=== PATIENT | female | born 1930 | race Caucasian/White ===

== ENCOUNTER 2018-07-12 21:40 | Inpatient (IN) | payer MEDICARE ==
[~2018-07-12] VITALS: Ht 152.4 cm; Wt 66.7 kg
[~2018-07-12 21:40] MED LIST: ASPIR 8181 MG PO; ATENOLOL 100MG100 MG PO; CALCIUM 600 +1 EAC1 PO; CENTRUM GARLIC300 MG PO; COLACE100 MG PO; FISH OIL 1,001000 M2 PO; HYDROCODONE-AP1 EAC6 PO; LEXAPRO 10 MG T10 M1 PO; LISINOPRIL20 MG PO; LUMIGAN2.5 M1 OP; MILK OF MA2400 MG/10 PO; NITROGLYCERIN0.4 MG SUBLING; NORVASC2.5 MG PO; ONDANSETRON HCL4 M2 PO; OXYCODONE HCL 55 MG PO; PAIN RELIEF650 MG PO; PREDNISONE 5 MG5 M1 PO; VITAMIN D3400 UNIT PO; VITAMIN E400 UNIT PO; VITAMINC500 PO; XALATAN2.5 ML OPHTHALMIC; XARELTO10 MG PO
[2018-07-12 21:41] VITALS: BP 182/69
[2018-07-12] MEDS ORDERED: KAPSPARGO SPRIN50 MG PO (22:10)
[2018-07-12 22:19] LABS: URINE BILIRUBIN NEGATIVE (Negative); URINE BLOOD NEGATIVE (Negative); URINE CLARITY CLEAR; URINE COLOR YELLOW; URINE GLUCOSE-RANDOM NEGATIVE (Negative); URINE KETONES NEGATIVE (Negative); URINE PROTEIN NEGATIVE (Negative); URINE SPECIFIC GRAVITY 1.015 (1.005-1.030); URINE UROBILINOGEN 0.2 E.U./dl (0.2-1.0)
[2018-07-12 22:21] LABS: URINE LEUKOCYTES-REFLEX 2+ (Negative); URINE NITRITE-REFLEX POSITIVE (Negative)
[2018-07-12 22:23] LABS: ABSOLUTE BASOPHILS 0.1 thou/uL (0.0-0.2); ABSOLUTE EOSINOPHILS 0.3 thou/uL (0.0-0.7); ABSOLUTE MONOCYTES 0.9 thou/uL (0.0-1.2); ABSOLUTE NEUTROPHILS 5.2 thou/uL (1.6-8.1); BASOPHILS 1.1 %; EOSINOPHILS 3.3 %; HEMATOCRIT 45.5 % (37.0-47.0); LYMPHOCYTES 23.9 %; MCH 29.6 pg (26.0-34.0); MCHC 32.9 g/dL (28.0-37.0); MONOCYTES 10.6 %; MPV 7.6 fl. (7.2-11.1); NUCLEATED RBCS 0 /100WBC; PLATELET COUNT* 401 thou/uL (150-400); POLYS 61.1 %; RBC 5.06 mil/uL (4.20-5.00); WBC 8.5 thou/uL (4.0-11.0)
[2018-07-12 22:28] LABS: ANION GAP 8 mmol/L (7-16); BUN 21 mg/dL (7-18); CALCIUM 9.2 mg/dL (8.5-10.1); CHLORIDE 100 mmol/L (98-107); CO2 30 mmol/L (21-32); CREATININE 0.8 mg/dL (0.6-1.3); GLUCOSE 112 mg/dL (70-99); POTASSIUM 3.8 mmol/L (3.5-5.1); SODIUM 138 mmol/L (136-145)
[2018-07-12 22:32] LABS: INR 0.9; PROTIME 9.6 Seconds (9.20-11.50)
[2018-07-12 22:38] LABS: ALBUMIN 4.2 g/dL (3.4-5.0); ALKALINE PHOSPHATASE 87 U/L (46-116); LIPASE 459 U/L (73-393); NT-PRO BRAIN NAT PEPTIDE 147 pg/mL (<300); SGOT 27 U/L (15-37); SGPT 25 U/L (30-65); TOTAL BILIRUBIN 0.2 mg/dL (<0.1-1.0); TOTAL PROTEIN 7.9 g/dL (6.4-8.2); TROPONIN-I LEVEL <0.06 ng/mL (<0.06)
[2018-07-12 22:43] LABS: CASTS None Seen /LPF (None Seen); SQUAMOUS 0-3 Few /LPF (0-3)
[2018-07-12 22:44] LABS: BACTERIA-REFLEX >30 Many /HPF (None Seen); CRYSTALS None Seen /LPF (None Seen); URINE RBC None Seen /HPF (0-2); URINE WBC-REFLEX 6-15 Few /HPF (0-5)
[2018-07-13 01:06] VITALS: BP 148/61
[2018-07-13 02:24] VITALS: BP 151/67
--- NOTE | 2018-07-13 03:45 | NUR ---
PT ARRIVED ON UNIT AROUND 0100. A&Ox4. VITALS STABLE. O2 93% ON RA. UP WITH ASSIST. ADMIT CHECKLIST COMPLETE. PERSONAL ITEMS WITH PT. SCDs ON. IV IN LEFT AC PATENT, INFUSING.
--- NOTE | 2018-07-13 04:56 | NUR ---
PT A&Ox4. VITALS STABLE. STAND BY ASSIST TO CAMMODE. IV IN L AC PATENT, INFUSING. DENIES PAIN. SCDs IN PLACE. FALL PRECAUTIONS IN PLACE. CALL LIGHT WITHIN REACH. HOURLY ROUNDING COMPLETE. WILL CONTINUE TO MONITOR.
[2018-07-13 07:50] VITALS: BP 106/85
--- NOTE | 2018-07-13 13:21 | EKG ---
[place] [address] ELECTROCARDIOGRAM REPORT Name: MOLLY HOBBS Room: [address] ADM IN [facility]#: [id number] Admission: 07/13/18 Attend Phys: Sugey Yost MD Discharge: Date of : [birth year] Report #: [id number] THIS REPORT FOR: //name// [facility] ED Test Date: 2018-07-12 Test Time: 22:34:39 Pat Name: MOLLY HOBBS Department: Room: [facility] Gender: F Supervisor Park Workers: RUBEN : 1930 Requested By: Gela De La Fuente Order Number: [id number] MD: Giacomo Phelps Measurements Intervals [place] Rate: 67 P: 19 CA: 218 QRS: -74 QRSD: 156 T: 88 QT: 482 QTc: 509 Interpretive Statements Atrial-sensed ventricular-paced complexes No further analysis attempted due to paced rhythm Compared to ECG 02/02/2017 03:35:59 No significant changes Electronically Signed On 07-13-2018 13:21:47 EMPLOYEE COUNSELOR by Giacomo Phelps [email or web address] <ELECTRONICALLY SIGNED> By: Giacomo Phelps MD, FAC 07/13/18 1321 [id number] Giacomo Phelps MD, [facility] /EPI
--- NOTE | 2018-07-13 16:05 | NUR ---
SW met with pt to complete initial assessment, introduce self, and SW role. Pt alert, oriented, pleasant. Pt lives at home alone in mobile home. Pt has a supportive sister. Pt has gunner PALENCIA. Pt has hx of HH after hip surgeries but does not recall name of agency. Pt said she used to go to [facility] for exercise classes. Pt has hx of SNF at [facility] and [facility]. SW to continue to follow to assist with safe dc planning.
[2018-07-13 16:27] VITALS: BP 172/72
--- NOTE | 2018-07-13 18:08 | NUR ---
ASSESSMENT COMPLETE. PT ALERT AND ORIENTED. DENIES PAIN AND N/V. IV FLUIDS INFUSING. PT IS FALL RISK, CHAIR ALARM ON. PT SAT IN CHAIR MOST OF THE DAY. TOLERATING DIET. DENIES N/V. PT IS ON ROOM AIR WITH [place] SATS, VITALS STABLE. SKIN INTACT. PT IS UP ONE ASSIST. PT TAKES MEDICATIONS WITHOUT DIFFICULTY. SEE ASSESSMENT AND VITALS FOR OTHER DETAILS. CALL LIGHT WITHIN REACH, WILL CONTINUE PLAN OF CARE
--- NOTE | 2018-07-14 05:29 | NUR ---
PATIENT HAD MINOR EPISODE THIS A.M WHEN GETTING TO BEDSIDE COMMODE. SHE STATED "I SUDDENTLY FEEL WEAK ALL OVER I DONT KNOW HOW TO EXPLAIN WHAT I AM FEELING, I HAVE DISCOMFORT IN MY UPPER STOMACH IT'S NOT PAIN". PT DENIED NAUSEA. BP WAS TAKEN IT WAS 196/93. GIVEN NITRO X3. SEEMED TO SUBSIDE DISCOMFORT. BP CAME DOWN TO NORMAL LIMITS. PT WAS ABLE TO HAVE BM. SHE STATED SHE FELT BETTER. WAS CALLED AND AWARE OF SITUATION ORDERS TO MONITOR PT. PT HAS NO VOICED CONCERNS AT THIS TIME. BED TO LOWEST POSITION. CALL LIGHT WITHIN REACH. WILL CONTINUE TO MONITOR.
[2018-07-14 07:50] VITALS: BP 188/95
--- NOTE | 2018-07-14 18:13 | NUR ---
PATIENT HAS BEEN A/O X 4 THIS SHIFT. HAS DENIED PAIN. PATIENT'S IV SALINE LOCKED. ANTIBIOTICS INFUSED ORDERED. PATIENT UP IN CHAIR FOR ALL OF SHIFT. PATIENT AMBULATING IN ROOM TO BATHROOM WITH SBA. PATIENT TOLERATING DIET. PATIENT SHOWERED THIS SHIFT. PATIENT NOTED TO HAVE SMALL SKIN TEAR TO RIGHT LOWER EXTREMITY AFTER SHOWER, STATES BUMPED LEG INTO SHOWER CHAIR, PICTURE OBTAINED. MEPILEX APPLIED TO RIGHT LOWER LEG. PATIENT HOPEFUL TO BE DISCHARGED IN THE NEXT COUPLE OF DAYS. HOURLY ROUNDING COMPLETED. CALL LIGHT WITHIN REACH. WILL CONTINUE WITH PLAN OF CARE.
[2018-07-14 20:03] VITALS: BP 142/79
--- NOTE | 2018-07-15 05:18 | NUR ---
PATIENT SLEPT WELL DURING THIS SHIFT. PT USES CALL LIGHT APPROPRIATELY FOR ASSISTANCE TO BATHROOM. PT UP WITH USE OF WALKER AND ASSIST. PT IS ON ROOM AIR. PT TAKES PO MEDICATION WITH NO PROBLEM. PT DENIES PAIN/NAUSEA ON THIS SHIFT. PT VERY HEARD OF HEARING. PT WITH SALINE LOCK, PATENT, IN THE RT AC. FREQUENTLY USED ITEMS AND CALL LIGHT WITHIN REACH. SIDERAILS UPX2. WILL CONTINUE TO MONITOR.
[2018-07-15 07:55] VITALS: BP 155/83
[2018-07-15] MEDS ORDERED: AZITHROMYCIN 2250 MG PO (15:21)
[2018-07-15] MEDS ORDERED: CEFDINIR300 MG PO (15:21)
[2018-07-15 15:39] VITALS: BP 155/83
[2018-07-15 15:45] VITALS: BP 155/83
[2018-07-15 16:00] VITALS: BP 132/82
--- NOTE | 2018-07-15 16:01 | NUR ---
SAND BOBBER SPOKE TO THE PATIENT TO DISCUSS DISCHARGE PLANNING NEEDS AND HH AT D/C. PATIENT REQUEST HH WITH [facility]. D/C SEARCH ENGINE OPTIMIZATION STRATEGIST SPOKE TO MENDY WITH [facility] TO INFORM OF THE REFERRAL AND FAXED PATIENT'S FACESHEET, H&P, AND D/C ORDERS. [facility] TO CONTACT THE PATIENT TO ARRANGE A TIME TO VISIT. CM WILL REMAIN AVAILABLE TO ASSIST AND FOLLOW NEEDED.
--- NOTE | 2018-07-15 16:39 | NUR ---
PATIENT GIVEN DISCHARGE INSTRUCTIONS AND PRESCRIPTIONS CALLED INTO PATIENT'S PHARMACY PER REQUEST. PATIENT'S IV REMOVED. PATIENT VERBALIZED UNDERSTANDING IN REGARDS TO FOLLOW UP APPOINTMENTS AND NEW MEDICATIONS. PATIENT DISCHARGED TO HOME WITH ALL BELONGINGS. ESCORTED OFF NURSING UNIT WITH NURSING STAFF TO FRONT EXIT.
== END 2018-07-15 16:41 | disposition home health service (06) | DRG 178 ==
LOC: M.ERS 21:40 → M.3W 07-13 00:17 → M.TBA-ER 07-13 00:17 → M.3W 07-13 00:17
PROVIDERS: Emergency Medicine; ADMIT Internal Medicine
DX: J69.0 Pneumonitis due to inhalation of food and vomit (principal); N39.0 Urinary tract infection, site not specified; J15.6 Pneumonia due to other Gram-negative bacteria; Z96.641 Presence of right artificial hip joint; H40.9 Unspecified glaucoma; I10 Essential (primary) hypertension; F32.9 Major depressive disorder, single episode, unspecified; Z95.0 Presence of cardiac pacemaker; Z87.891 Personal history of nicotine dependence; Z98.42 Cataract extraction status, left eye; Z79.82 Long term (current) use of aspirin; Z79.899 Other long term (current) drug therapy

== ENCOUNTER 2018-07-23 12:47 | Inpatient (IN) | payer MEDICARE ==
[~2018-07-23] VITALS: Ht 152.4 cm; Wt 66.2 kg
[~2018-07-23 12:47] MED LIST changes: +AZITHROMYCIN 2250 MG PO; +CEFDINIR300 MG PO; +KAPSPARGO SPRIN50 MG PO
[2018-07-23 12:49] VITALS: BP 192/92
[2018-07-23 13:49] LABS: ABSOLUTE BASOPHILS 0.1 thou/uL (0.0-0.2); ABSOLUTE EOSINOPHILS 0.1 thou/uL (0.0-0.7); ABSOLUTE LYMPHOCYTES 1.1 thou/uL (0.8-5.3); ABSOLUTE MONOCYTES 0.5 thou/uL (0.0-1.2); ABSOLUTE NEUTROPHILS 5.3 thou/uL (1.6-8.1); BASOPHILS 1.2 %; EOSINOPHILS 1.4 %; HEMATOCRIT 42.7 % (37.0-47.0); HEMOGLOBIN 14.1 gm/dL (12.0-15.0); LYMPHOCYTES 15.5 %; MCH 29.5 pg (26.0-34.0); MCV 89.6 fL (80.0-100.0); MONOCYTES 6.5 %; MPV 6.9 fl. (7.2-11.1); NUCLEATED RBCS 0 /100WBC; PLATELET COUNT* 396 thou/uL (150-400); POLYS 75.4 %; RBC 4.77 mil/uL (4.20-5.00); RDW-CV 13.8 % (10.5-14.5); WBC 7.1 thou/uL (4.0-11.0)
[2018-07-23 13:55] LABS: URINE BILIRUBIN NEGATIVE (Negative); URINE BLOOD NEGATIVE (Negative); URINE CLARITY CLEAR; URINE COLOR YELLOW; URINE GLUCOSE-RANDOM NEGATIVE (Negative); URINE KETONES NEGATIVE (Negative); URINE LEUKOCYTES-REFLEX NEGATIVE (Negative); URINE NITRITE-REFLEX NEGATIVE (Negative); URINE PROTEIN NEGATIVE (Negative); URINE SPECIFIC GRAVITY <= 1.005 (1.005-1.030); URINE UROBILINOGEN 0.2 E.U./dl (0.2-1.0)
[2018-07-23 14:01] LABS: ANION GAP 11 mmol/L (7-16); BUN 14 mg/dL (7-18); CHLORIDE 104 mmol/L (98-107); CO2 28 mmol/L (21-32); CREATININE 0.7 mg/dL (0.6-1.3); GLUCOSE 89 mg/dL (70-99); POTASSIUM 3.4 mmol/L (3.5-5.1); SODIUM 143 mmol/L (136-145)
[2018-07-23 14:03] LABS: APTT 24.7 Seconds (25.0-31.3)
[2018-07-23 14:13] LABS: ALBUMIN 3.8 g/dL (3.4-5.0); ALKALINE PHOSPHATASE 77 U/L (46-116); SGOT 24 U/L (15-37); SGPT 24 U/L (30-65); TOTAL BILIRUBIN 0.2 mg/dL (<0.1-1.0); TOTAL PROTEIN 7.1 g/dL (6.4-8.2); TROPONIN-I LEVEL <0.06 ng/mL (<0.06)
--- NOTE | 2018-07-23 16:42 | NUR ---
DAIRY CLERK SPOKE TO MANAGER OF BROADCAST CONTENT AND SHE INFORMS THAT THE PATIENT IS WEAK AND UNABLE TO RETURN HOME AT D/C. D/C TOOL SMITH SPOKE TO THE PATIENT TO DISCUSS DISCHARGE PLANNING NEEDS. PATIENT'S SISTER IS UNABLE TO ASSIST, AND THE PATIENT RESIDES AT HOME ALONE. PATIENT WAS SUPPOSED TO BE SEEN BY [facility], BUT CAME TO THE HOSPITAL PRIOR TO THEIR ARRIVAL. D/C TOOL SMITH SPOKE TO DR MERA TO INFORM OF THE PATIENT'S STATUS AND HE PLANS TO ADMIT THE PATIENT. D/C TOOL SMITH INFORMED MANAGER OF BROADCAST CONTENT OF THIS INFO AND SHE WILL F/U WILL DR MERA. CM WILL REMAIN AVAILABLE TO ASSIST AND FOLLOW NEEDED.
[2018-07-23 19:30] VITALS: BP 173/99
[2018-07-23 20:00] VITALS: BP 186/90
[2018-07-24] VITALS: BP 159/73
[2018-07-24 04:16] LABS: CALCIUM 8.6 mg/dL (8.5-10.1); CREATININE 0.7 mg/dL (0.6-1.3); POTASSIUM 3.3 mmol/L (3.5-5.1)
--- NOTE | 2018-07-24 07:20 | NUR ---
PATIENT ARRIVED ON FLOOR ABOUT 1944. PATIENT ADMISSION HISTORY AND ASSESSMENT WAS COMPLETED CHARTED. PATIENT HAS HAD NO COMPLAINTS OF PAIN. PATIENT IS UP WITH ASSIST AND A WALKER. WILL CONTINUE TO MONITOR.
[2018-07-24 07:35] VITALS: BP 177/81
--- NOTE | 2018-07-24 14:52 | EKG ---
[place] [address] ELECTROCARDIOGRAM REPORT Name: MOLLY HOBBS Room: [address] ADM IN [facility]#: [id number] Admission: 07/23/18 Attend Phys: Jesica Lagos MD Discharge: Date of : [birth year] Report #: [id number] THIS REPORT FOR: //name// [facility] ED Test Date: 2018-07-23 Test Time: 13:32:31 Pat Name: MOLLY HOBBS Department: Room: [facility] Gender: F Time Study Analyst: Arcenio LUNA : 1930 Requested By: Naz Vallecillo Order Number: [id number] MD: Ang Mccall Measurements Intervals [place] Rate: 75 P: 39 ME: 217 QRS: -78 QRSD: 153 T: 87 QT: 445 QTc: 498 Interpretive Statements Atrial-sensed ventricular-paced rhythm No further analysis attempted due to paced rhythm Compared to ECG 07/12/2018 22:34:39 No significant changes Electronically Signed On 07-24-2018 14:52:16 PERSONNEL ASSISTANT by Ang Mccall [email or web address] <ELECTRONICALLY SIGNED> By: Ang Mccall MD, FAC 07/24/18 1452 1332 1332 Ang Mccall MD, [facility] /EPI
--- NOTE | 2018-07-24 15:08 | 2DMMODE ---
[place] [address] 2 D/M-MODE ECHOCARDIOGRAM Name: MOLLY HOBBS Room: [address] IN [facility]#: [id number] Admission: 07/23/18 Attend Phys: Jesica Lagos MD Discharge: Date of : [birth year] Date of Service: 07/24/18 1507 Report #: [id number] THIS REPORT FOR: //name// APPROVED REPORT Study performed: 07/24/2018 13:35:56 EXAM: Comprehensive 2D, Doppler, and color-flow Echocardiogram Patient Location: In-Patient Room #: [facility] Status: routine BSA: 1.63 HR: 75 bpm BP: 177/81 mmHg Rhythm: NSR Other Information Study Quality: Good Indications Dyspnea 2D Dimensions IVSd: 13.22 (7-11mm) LVOT Diam: 15.70 (18-24mm) LVDd: 31.65 mm PWd: 11.13 (7-11mm) Ascending Ao: 24.71 (22-36mm) LVDs: 21.61 (25-40mm) Aortic Root: 29.84 mm Volumes Left Atrial Volume (Systole) LA ESV Index: 21.60 mL/m2 Aortic Valve AoV Peak Oscar.: 1.14 m/s AO Peak Gr.: 5.22 mmHg LVOT Max P.11 mmHg AO Mean Gr.: 3.27 mmHg LVOT Mean P.70 mmHg LVOT Max V: 0.88 m/s AO V2 VTI: 22.67 cm LVOT Mean V: 0.61 m/s MARITZA (VTI): 1.96 cm2 LVOT V1 VTI: 22.94 cm Mitral Valve E/A Ratio: 0.64 MV Decel. Time: 236.48 ms MV E Max Oscar.: 0.63 m/[place] [address] 2 D/M-MODE ECHOCARDIOGRAM Name: MOLLY HOBBS Room: [address] IN [facility]#: [id number] Admission: 07/23/18 Attend Phys: Jesica Lagos MD Discharge: Date of : [birth year] Date of Service: 07/24/18 1507 Report #: [id number] MV PHT: 68.58 ms MVA (PHT): 3.21 cm2 TDI E/Lateral E': 9.00 Lateral E' Oscar.: 0.07 m/s Pulmonary Valve PV Peak Oscar.: 0.88 m/s PV Peak Gr.: 3.07 mmHg Tricuspid Valve RAP Estimate: 5.00 mmHg TR Peak Gr.: 29.10 mmHg RVSP: 34.00 mmHg PA Pressure: 34.00 mmHg Left Ventricle The left ventricle is normal size. There is inferobasilar hypo-akinesis. There is normal left ventricular wall thickness. Left ventricular systolic function is normal. The left ventricular ejection fraction is within the normal range. LVEF is 65%. Grade I - abnormal relaxation pattern. Right Ventricle The right ventricle is normal size. The right ventricular systolic function is normal. Pacemaker lead is present in the right ventricle. Atria The left atrium size is normal. The right atrium size is normal. Aortic Valve Mild aortic valve sclerosis. Mild aortic regurgitation. There is no aortic valvular stenosis. Mitral Valve The mitral valve is normal in structure. There is no mitral valve regurgitation noted. No evidence of mitral valve stenosis. Tricuspid Valve The tricuspid valve is normal in structure. Mild tricuspid regurgitation. Mild pulmonary hypertension. Pulmonic Valve The pulmonary valve is normal in structure. Trace [place]monic [place] [address] 2 D/M-MODE ECHOCARDIOGRAM Name: MOLLY HOBBS D[place] Room: [address]#: [id number] Admission: 07/23/18 Attend Phys: Jesica Lagos MD Discharge: Date of : [birth year] Date of Service: 07/24/18 1507 Report #: [id number] Great Vessels The aortic root is normal in size. IVC is normal in size and collapses >50% with inspiration. Pericardium There is no pericardial effusion. <Conclusion> The left ventricle is normal size. There is normal left ventricular wall thickness. Left ventricular systolic function is normal. The left ventricular ejection fraction is within the normal range. LVEF is 65%. Grade I - abnormal relaxation pattern. The right ventricle is normal size. The left atrium size is normal. Mild aortic valve sclerosis. Mild aortic regurgitation. There is no aortic valvular stenosis. The mitral valve is normal in structure. The tricuspid valve is normal in structure. Mild tricuspid regurgitation. Mild pulmonary hypertension. IVC is normal in size and collapses >50% with inspiration. There is no pericardial effusion. There is inferobasilar hypo-akinesis. <ELECTRONICALLY SIGNED> By: Ang Mccall MD, FACC 07/24/18 1507 150 150 Ang Mccall MD, FACC /INF
--- NOTE | 2018-07-24 15:52 | NUR ---
SW met with pt to discuss safe dc planning and SNF placement options. Pt readmitted and was home alone with HH needs prior but pt was not home long enough for HH to establish care. Pt preference for [facility], [facility] faxed referral to [facility]. [facility] to continue to follow to assist with safe dc planning. [phone] fax [phone]
[2018-07-24 16:35] VITALS: BP 147/78
--- NOTE | 2018-07-24 18:05 | NUR ---
PATIENT RESTING IN BED. PATIENT DENIES ANY PAIN. PATIENT IS UP WITH ASSIST OF ONE. PATIENT WORKED WITH PHYSICAL AND OCCUPATIONAL THERAPIES TODAY. PATIENT HAS GOOD APPETITE. PATIENT DENIES ANY NEEDS AT THIS TIME. CALL LIGHT WITHIN REACH. WILL CONTINUE TO MONITOR.
[2018-07-24 20:10] VITALS: BP 155/76
[2018-07-25 04:39] LABS: CALCIUM 8.9 mg/dL (8.5-10.1); CREATININE 0.8 mg/dL (0.6-1.3)
--- NOTE | 2018-07-25 04:56 | NUR ---
PT CARE ASSUMED AT 1930. SAT MAINTAINED IN RA. CALL LIGHT WITHIN REACH AND BED IN LOW POSITION. PT IS ALERT AND ORIENTED X 4 BUT FORGETFUL. DENIES PAIN AND SOB. UP STANDBY.
[2018-07-25 08:30] VITALS: BP 171/85
[2018-07-25 16:55] VITALS: BP 144/72
--- NOTE | 2018-07-25 17:24 | NUR ---
Assumed care of pt at 0700, pt assessment complete. IV Left FA is patent and flushed per protocol. Pt expressed concerns about not having her cell phone and her family was not aware that she was in the hospital. This nurse called and spoke to pt sister, Ginny, whom is the authorized contact and informed her of pts current status. Pt informed as well. Currently pt in bed resting and no c/o, will cont to monitor, hourly rounding maintained.
[2018-07-25 20:00] VITALS: BP 178/68
--- NOTE | 2018-07-26 04:49 | NUR ---
PT A&Ox4. UP TO CAMMODE WITH ASSIST OF 1, GAITBELT AND WALKER. VITALS STABLE. OX 93% ON RA. IV IN L FA PATENT, SL. DENIES PAIN. FALL PRECAUTIONS IN PLACE. HOURLY ROUNDING COMPLETE. CALL LIGHT WITHIN REACH. WILL CONTINUE TO MONITOR.
[2018-07-26 08:50] VITALS: BP 182/85
[2018-07-26 17:20] VITALS: BP 156/70
--- NOTE | 2018-07-26 19:47 | NUR ---
ASSUMED CARE OF PT AT 0700. PT ASSESSMENT COMPLETE, NO C/O PAIN THROUGHOUT THIS SHIFT. PT UP TO RECLINER WITH X1 ASSIST, WEAKNESS NOTED. PT ABLE TO MAKE NEEDS KNOWN. HOURLY ROUNDING MAINTAINED.
[2018-07-26 20:00] VITALS: BP 147/83
--- NOTE | 2018-07-27 05:00 | NUR ---
PT A&Ox4. VITALS STABLE. OX 94% ON RA. IV L FA PATENT, SL. LEFT LEG/HIP PAIN, CONTROLLED WITH 1 DOSE OF TYLENOL. UP WITH 1 TO CAMMODE. FALL PRECAUTIONS IN PLACE. CALL LIGHT WITHIN REACH. HOURLY ROUNDING COMPLETE. WILL CONTINUE TO MONITOR.
[2018-07-27 05:01] LABS: CALCIUM 8.7 mg/dL (8.5-10.1); CREATININE 0.8 mg/dL (0.6-1.3); POTASSIUM 3.9 mmol/L (3.5-5.1)
[2018-07-27 07:45] VITALS: BP 145/74
[2018-07-27] MEDS ORDERED: NORVASC10 MG PO (13:57)
[2018-07-27] MEDS ORDERED: LOTENSIN40 MG PO (13:58)
[2018-07-27] MEDS ORDERED: CHLORTHALIDONE25 MG PO (13:59)
--- NOTE | 2018-07-27 14:19 | NUR ---
PT HAS BEEN ACCEPTED TO [facility] FOR SNF. DISCHARGE ORDERS FAXED TO [facility]. SPOKE WITH ADMISSIONS, THEY HAVE ARRANGED TRANSPORTATION TO COME PICK HER UP AT 3:00. SPOKE WITH PT, SHE UNDERSTANDS SHE IS GOING TO [facility], SHE SAID HER FAMILY KNOWS SHE IS LEAVING TODAY. SPOKE WITH ADMISSIONS AT [facility] TO NOTIFY THEM DISCHARGE ORDERS HAVE BEEN FAXED. CHART IS COPIED TO GO WITH PT, NURSING HAD PHONE NUMBER TO CALL REPORT.
[2018-07-27 14:27] VITALS: BP 145/74
[2018-07-27 14:41] VITALS: BP 145/74
[2018-07-27 14:43] VITALS: BP 145/74
--- NOTE | 2018-07-27 16:09 | NUR ---
PATIENT LEFT UNIT AT 1515. ALERT AND ORIENTED X4. UP WITH ASSIST X1 WITH WALKER AND GAIT BELT. IV DC'D. DENIES NEED FOR PAIN AND NAUSEA MEDICATION THIS SHIFT. ATTENDED THERAPIES THIS SHIFT. ALL PERSONAL ITEMS LEFT WITH PATIENT. DISCHARGE INSTRUCTIONS AND NEW MEDICATION INFORMATION SENT WITH PATIENT. VSS ON ROOM AIR. HOURLY ROUNDS HAVE BEEN MAINTAINED THROUGHOUT SHIFT. LEFT WITH TRANSPORTER VIA WHEELCHAIR VAN. REPORT GIVEN TO JAYA AT [facility].
[2018-07-27 16:15] VITALS: BP 145/74
== END 2018-07-27 15:15 | DRG 305 ==
LOC: M.ERS 12:47 → M.3W 16:42 → M.TBA-ER 16:42 → M.3W 20:01
PROVIDERS: Nurse Practitioner Family; ADMIT Family Medicine
DX: I16.0 Hypertensive urgency (principal); I42.9 Cardiomyopathy, unspecified; F32.9 Major depressive disorder, single episode, unspecified; I10 Essential (primary) hypertension; R53.81 Other malaise; Z95.0 Presence of cardiac pacemaker; E87.6 Hypokalemia; Z79.899 Other long term (current) drug therapy; Z87.891 Personal history of nicotine dependence